=== PATIENT | female | born 1990 | race Two or more races ===

== ENCOUNTER 2017-07-19 11:02 | Inpatient (IN) | payer OTHER ==
[2017-07-19] MEDS ORDERED: Carboprost Tromethamine 250 MCG/1 ML Amp IM PRN (13:23)
[2017-07-19] MEDS ORDERED: Methylergonovine 0.2 MG/1 ML Amp IM PRN (13:23)
[2017-07-19] MEDS ORDERED: Butorphanol 1 MG/ML SDV IVPUSH PRN (13:23)
[2017-07-19] MEDS ORDERED: Water For Irrigation,Sterile 1,000 ML Container IRR PRN (13:23)
[2017-07-19] MEDS ORDERED: Lidocaine 1% 50 ML MDV INJECT PRN (13:23)
[2017-07-19] MEDS ORDERED: Misoprostol 200 MCG Tab PO PRN (13:23)
[2017-07-19] MEDS ORDERED: Sodium Chloride 0.9% 10 ML Syringe FLUSH PRN (13:23)
[2017-07-19] MEDS ORDERED: Sodium Chloride 0.9% 2.5 ML Syringe FLUSH PRN (13:23)
[2017-07-19] MEDS ORDERED: Nalbuphine 10 MG/1 ML Vial IVPUSH PRN (13:23)
[2017-07-19] MEDS ORDERED: Oxytocin/0.9 % Sodium Chloride 30 UNIT/500 ML BAG IV SCH (13:30)
[2017-07-19] MEDS: Lactated Ringers 1,000 ML IV SCH ×4 (13:38→18:57)
[2017-07-19] MEDS: SODIUM CHLORIDE 0.9% IV SCH ×2 (15:18→23:13)
[2017-07-19] MEDS: ACYCLOVIR IV SCH ×2 (15:18→23:13)
[2017-07-19] MEDS ORDERED: fentaNYL 100 MCG/2 ML SDV ONE (18:58)
[2017-07-19] MEDS ORDERED: Ropivacaine HCl/PF 100 ML ONE (19:00)
--- NOTE | 2017-07-19 19:39 | PCM.PREANE ---
Preanesthetic Assessment - Procedure Proposed Procedure: labor epidural placement and dosing - Anesthesia/Transfusion/Family Hx Anesthesia History: Prior Anesthesia Without Reaction Family History of Anesthesia Reaction: No Transfusion History: No Prior Transfusion(s) Intubation History: Unknown - Review of Systems General: Other (labor pains) Pulmonary: No Symptoms Cardiovascular: No Symptoms Gastrointestinal: No Symptoms Neurological: No Symptoms Other: Reports: Anxiety - Physical Assessment NPO Status Date: 07/19/17 NPO Status Time: 12:00 Height: 5 ft 4 in Weight: 170 lb ASA Class: 2E Mental Status: Alert & Oriented x3 Airway Class: Mallampati = 1 Dentition: Reports: Normal Dentition Thyro-Mental Finger Breadths: 3 Mouth Opening Finger Breadths: 3 ROM/Head Extension: Full Lungs: Clear to Auscultation, Normal Respiratory Effort Cardiovascular: Regular Rate, Regular Rhythm, No Murmurs - Lab Values: Laboratory Last Values WBC 11.80 K/uL (4.0-11.0) H 07/19/17 13:36 RBC 3.87 M/uL (4.30-5.90) L 07/19/17 13:36 Hgb 12.6 g/dL (12.0-16.0) 07/19/17 13:36 Hct 37.0 % (36.0-46.0) 07/19/17 13:36 MCV 95.6 fL (80.0-98.0) 07/19/17 13:36 MCH 32.6 pg (27.0-32.0) H 07/19/17 13:36 MCHC 34.1 g/dL (31.0-37.0) 07/19/17 13:36 RDW Std Deviation 45.1 fl (28.0-62.0) 07/19/17 13:36 RDW Coeff of Beatrice 13 % (11.0-15.0) 07/19/17 13:36 Plt Count 146 K/uL (150-400) L 07/19/17 13:36 MPV 11.60 fL (7.40-12.00) 07/19/17 13:36 Nucleated RBC % 0.0 /100WBC 07/19/17 13:36 Nucleated RBCs # 0 K/uL 07/19/17 13:36 Blood Type O POSITIVE 07/19/17 13:36 Antibody Screen NEGATIVE 07/19/17 13:36 - Allergies Allergies/Adverse Reactions: Allergies Allergy/AdvReac Type Severity Reaction Status Date / Time No Known Allergies Allergy Verified 03/10/16 09:37 - Blood Blood Available: No - Anesthesia Plan Pre-Op Medication Ordered: Other (stadol greater than hour ago) - Acknowledgements Anesthesia Type Planned: Epidural Pt an Appropriate Candidate for the Planned Anesthesia: Yes Alternatives and Risks of Anesthesia Discussed w Pt/Guardian: Yes Pt/Guardian Understands and Agrees with Anesthesia Plan: Yes Additional Comments: present PreAnesthesia Questionnaire - Past Health History Medical/Surgical History: Denies Medical/Surgical History - Infectious Disease History Infectious Disease History: Reports: Chicken Pox, Measles, Mumps - SUBSTANCE USE Smoking Status *Q: Never Smoker Tobacco Use Within Last Twelve Months: No Second Hand Smoke Exposure: No Recreational Drug Use History: No - CURRENT (IN HOUSE) MEDS Current Meds: Current Medications Butorphanol Tartrate (Stadol) 1 mg IVPUSH Q1H PRN PRN Reason: Pain Last Admin: 07/19/17 18:10 Dose: 1 mg Carboprost Tromethamine (Hemabate Ds) 250 mcg IM ASDIRECTED PRN PRN Reason: Post Hemorrhage Lactated Ringer's (Ringers, Lactated) 1,000 mls @ 150 mls/hr IV ASDIRECTED [facility] Last Admin: 07/19/17 18:57 Dose: 150 mls/hr Oxytocin/Sodium Chloride (Oxytocin 30 Unit/500 Ml-Ns) 30 unit in 500 mls @ 999 mls/hr IV TITRATE [facility] Acyclovir 770 mg/ Sodium (Chloride) 115.4 mls @ 115.4 mls/hr IV Q8H [facility] Last Admin: 07/19/17 15:18 Dose: 115.4 mls/hr Lidocaine HCl (Xylocaine 1%) 50 ml INJECT .ONCE PRN PRN Reason: Laceration repair Methylergonovine Maleate (Methergine) 0.2 mg IM ASDIRECTED PRN PRN Reason: Post Hemorrhage Misoprostol (Cytotec) 200 mcg PO .ONCE PRN PRN Reason: Post Hemorrhage Nalbuphine HCl (Nubain) 10 mg IVPUSH Q1H PRN PRN Reason: Pain (severe 7-10) Sodium Chloride (Saline Flush) 10 ml FLUSH ASDIRECTED PRN PRN Reason: Keep Vein Open Sodium Chloride (Saline Flush) 2.5 ml FLUSH ASDIRECTED PRN PRN Reason: Keep Vein Open Sterile Water (Sterile Water For Irrigation) 1,000 ml IRR ASDIRECTED PRN PRN Reason: delivery Discontinued Medications Fentanyl (Sublimaze) Confirm Administered Dose 100 mcg .ROUTE .STK-MED ONE Stop: 07/19/17 18:59 Ropivacaine (Naropin 0.2%) Confirm Administered Dose 100 mls @ as directed .ROUTE .STK-MED ONE Stop: 07/19/17 19:01
[2017-07-20] MEDS ORDERED: oxyCODONE 5 MG Tab PO PRN (00:42)
[2017-07-20] MEDS ORDERED: Benzocaine/Menthol 20%-0.5% Spray 78 GM Cannister TOP PRN (00:42)
[2017-07-20] MEDS ORDERED: Lanolin 100% Cream 7 GM Tube TOP PRN (00:42)
[2017-07-20] MEDS ORDERED: Bisacodyl 10 MG Supp RECTAL PRN (00:42)
[2017-07-20] MEDS ORDERED: Acetaminophen 500 MG Tab PO PRN (00:42)
[2017-07-20] MEDS ORDERED: Ibuprofen 400 MG Tab PO PRN (00:42)
[2017-07-20] MEDS ORDERED: Witch Hazel Medicated Pads 40/Jar TOP PRN (00:42)
[2017-07-20] MEDS ORDERED: Methylergonovine 0.2 MG/1 ML Amp IM PRN (00:42)
[2017-07-20] MEDS: Ibuprofen 800 MG Tab PO PRN ×3 (02:19→16:21)
--- NOTE | 2017-07-20 03:01 | OR ---
SURGEON: Arti Dee M.D. DATE OF PROCEDURE: 07/20/2017 PREOPERATIVE DIAGNOSIS: Thirty nine week intrauterine , active spontaneous labor. POSTOPERATIVE DIAGNOSIS: Thirty nine week intrauterine , active spontaneous labor. PROCEDURE: Term spontaneous vaginal delivery, repair of bilateral vaginal laceration. ANESTHESIA: Epidural. ESTIMATED BLOOD LOSS: Less than 300 mL. FINDINGS: Liveborn male, scores were 8 and 9, weight is pending at the time of dictation. ANESTHESIA: Epidural. COMPLICATIONS: None known. DISPOSITION: Mother and baby are in LDRP, in good condition. BRIEF HISTORY: This is a 26-year-old female. She is . She presents in active spontaneous labor, 4 to 5 cm dilated. She had artificial rupture of membranes performed, clear fluid noted. She received an epidural for pain control. She had category 1 heart tones throughout labor. She progressed to complete. DESCRIPTION OF PROCEDURE: With the patient in dorsal lithotomy position, the patient pushed over 20 minutes time period to a 5+ station, at which time the head was delivered spontaneously and atraumatically over the perineum with support with subsequent delivery of the 's shoulders and body without any difficulty. The infant was bulb suctioned by nose and mouth, the cord was clamped x2 and cut, and the infant was handed to the mother in the presence of the nurse attending delivery. The infant was a liveborn male, scores 8 and 9. Weight is pending at the time of dictation. Cord blood was collected for cord ABGs as well as routine cord blood sampling. Pitocin was initiated after delivery of the to assist with delivery of the placenta, which was delivered spontaneously, Schultze intact with 3 vessels. Upon inspection of the pelvis and perineum, there were no vaginal sidewall, cervical, rectal, or perineal lacerations. At the upper lateral vagina, there was a small laceration on each side requiring a single [id number] suture for hemostasis. Final sponge, needle, and instrument counts were correct. There were no known complications. Mother and are in LDRP, in good condition. GOKUL / JULIETTE /[id number]
[2017-07-20] MEDS: Acetaminophen 500 MG Tab PO PRN ×3 (06:10→19:58)
--- NOTE | 2017-07-20 06:51 | PCM48HPAN ---
Post Anesthesia Note - EVALUATION WITHIN 48HRS OF ANESTHETIC Vital Signs in Normal Range: Yes Patient Participated in Evaluation: Yes Respiratory Function Stable: Yes Airway Patent: Yes Cardiovascular Function Stable: Yes Hydration Status Stable: Yes Pain Control Satisfactory: Yes Nausea and Vomiting Control Satisfactory: Yes Mental Status Recovered: Yes
--- NOTE | 2017-07-20 08:42 | PCM.PNPP ---
- General Info Date of Service: 07/20/17 Functional Status: Reports: Pain Controlled, Tolerating Diet, Ambulating, Urinating - Review of Systems General: Denies: Fever, Weakness, Fatigue Pulmonary: Denies: Shortness of Breath, Pleuritic Chest Pain, Cough Cardiovascular: Denies: Chest Pain, Palpitations, Dyspnea on Exertion Gastrointestinal: Denies: Abdominal Pain Genitourinary: Denies: Dysuria - General Info Date of Service: 07/20/17 - Patient Data Vital Signs - Most Recent: Last Vital Signs Temp 37.2 C 07/20/17 06:00 Pulse 85 07/20/17 06:00 Resp 20 07/20/17 06:00 BP 112/53 L 07/20/17 06:00 Pulse Ox 97 07/20/17 06:00 Weight - Most Recent: 77.111 kg Lab Results - Last 24 Hours: Laboratory Results - last 24 hr 07/19/17 07/19/17 Range/Units 13:36 13:36 WBC 11.80 H (4.0-11.0) K/uL RBC 3.87 L (4.30-5.90) M/uL Hgb 12.6 (12.0-16.0) g/dL Hct 37.0 (36.0-46.0) % MCV 95.6 (80.0-98.0) fL MCH 32.6 H (27.0-32.0) pg MCHC 34.1 (31.0-37.0) g/dL RDW Std Deviation 45.1 (28.0-62.0) fl RDW Coeff of Beatrice 13 (11.0-15.0) % Plt Count 146 L (150-400) K/uL MPV 11.60 (7.40-12.00) fL Nucleated RBC % 0.0 /100WBC Nucleated RBCs # 0 K/uL Blood Type O POSITIVE Antibody Screen NEGATIVE Med Orders - Current: Current Medications Acetaminophen (Tylenol Extra Strength) 500 mg PO Q4H PRN PRN Reason: Pain Acetaminophen (Tylenol Extra Strength) 1,000 mg PO Q4H PRN PRN Reason: Pain Last Admin: 07/20/17 06:10 Dose: 1,000 mg Benzocaine/Menthol (Dermoplast Pain Relief 20%-0.5% [place]) 78 gm TOP ASDIRECTED PRN PRN Reason: Perineal Comfort Measure Bisacodyl (Dulcolax) 10 mg RECTAL .ONCE PRN PRN Reason: Constipation Docusate Sodium (Colace) 100 mg PO BID PRN PRN Reason: Constipation Emollient Ointment (Lansinoh Hpa) 0 gm TOP ASDIRECTED PRN PRN Reason: Sore Nipples Ibuprofen (Motrin) 400 mg PO Q4H PRN PRN Reason: Pain Ibuprofen (Motrin) 800 mg PO Q6H PRN PRN Reason: Pain Last Admin: 07/20/17 02:19 Dose: 800 mg Methylergonovine Maleate (Methergine) 0.2 mg IM .ONCE PRN PRN Reason: Excessive Vaginal Bleeding Oxycodone HCl (Oxycodone) 5 mg PO Q2H PRN PRN Reason: Pain Witch Lena (Tucks) 1 pad TOP ASDIRECTED PRN PRN Reason: comfort care Discontinued Medications Butorphanol Tartrate (Stadol) 1 mg IVPUSH Q1H PRN PRN Reason: Pain Last Admin: 07/19/17 18:10 Dose: 1 mg Carboprost Tromethamine (Hemabate Ds) 250 mcg IM ASDIRECTED PRN PRN Reason: Post Hemorrhage Fentanyl (Sublimaze) Confirm Administered Dose 100 mcg .ROUTE .STK-MED ONE Stop: 07/19/17 18:59 Lactated Ringer's (Ringers, Lactated) 1,000 mls @ 150 mls/hr IV ASDIRECTED [facility] Last Admin: 07/19/17 18:57 Dose: 150 mls/hr Oxytocin/Sodium Chloride (Oxytocin 30 Unit/500 Ml-Ns) 30 unit in 500 mls @ 999 mls/hr IV TITRATE [facility] Last Admin: 07/20/17 00:13 Dose: 999 mls/hr Acyclovir 770 mg/ Sodium (Chloride) 115.4 mls @ 115.4 mls/hr IV Q8H [facility] Last Admin: 07/19/17 23:13 Dose: 115.4 mls/hr Ropivacaine (Naropin 0.2%) Confirm Administered Dose 100 mls @ as directed .ROUTE .STK-MED ONE Stop: 07/19/17 19:01 Lidocaine HCl (Xylocaine 1%) 50 ml INJECT .ONCE PRN PRN Reason: Laceration repair Methylergonovine Maleate (Methergine) 0.2 mg IM ASDIRECTED PRN PRN Reason: Post Hemorrhage Misoprostol (Cytotec) 200 mcg PO .ONCE PRN PRN Reason: Post Hemorrhage Nalbuphine HCl (Nubain) 10 mg IVPUSH Q1H PRN PRN Reason: Pain (severe 7-10) Sodium Chloride (Saline Flush) 10 ml FLUSH ASDIRECTED PRN PRN Reason: Keep Vein Open Sodium Chloride (Saline Flush) 2.5 ml FLUSH ASDIRECTED PRN PRN Reason: Keep Vein Open Sterile Water (Sterile Water For Irrigation) 1,000 ml IRR ASDIRECTED PRN PRN Reason: delivery Last Admin: 07/20/17 01:03 Dose: 1,000 ml - Infant Interaction Disposition, : at Bedside Infant Interaction: Holding Infant Feeding: Breastfed Infant; Nursed Well Support Person: - Recovery Exam Fundal Tone: Firm Fundal Level: At Umbilicus Fundal Placement: Midline Lochia Color: Rubra/Red Perineum Description: Intact, Minimal Bruising/Swelling Episiotomy/Laceration: Approximated - Exam General: Alert, Oriented Neck: Supple Lungs: Clear to Auscultation, Normal Respiratory Effort Cardiovascular: Regular Rate, Regular Rhythm GI/Abdominal Exam: Normal Bowel Sounds, Soft, Non-Tender, No Organomegaly, No Distention, No Mass, Pelvis Stable Extremities: Normal Inspection, Normal Range of Motion, Non-Tender, Normal Capillary Refill, Pedal Edema (trace) - Problem List & Annotations (1) Vaginal delivery SNOMED Code(s): 206763949 Code(s): O80 - ENCOUNTER FOR FULL-TERM UNCOMPLICATED DELIVERY Status: Acute Current Visit: Yes - Problem List Review Problem List Initiated/Reviewed/Updated: Yes - Assessment Assessment:: PPD#0 from . Minimal pain and lochia. Work on breast feeding today. Aim for discharge home tomorrow. - Plan Plan:: Continue routine post- cares.
[2017-07-20] MEDS: Docusate Sodium 100 MG Cap PO PRN (08:45)
[2017-07-21] MEDS: Ibuprofen 800 MG Tab PO PRN ×2 (00:20→08:09)
[2017-07-21] MEDS: Docusate Sodium 100 MG Cap PO PRN (08:15)
--- NOTE | 2017-07-21 09:01 | PCM.PNPP ---
- General Info Functional Status: Reports: Pain Controlled, Tolerating Diet, Ambulating, Urinating - Review of Systems General: Reports: No Symptoms HEENT: Reports: No Symptoms Pulmonary: Reports: No Symptoms Cardiovascular: Reports: No Symptoms Gastrointestinal: Reports: No Symptoms Genitourinary: Reports: No Symptoms Musculoskeletal: Reports: No Symptoms Skin: Reports: No Symptoms Neurological: Reports: No Symptoms Psychiatric: Reports: No Symptoms - Patient Data Vital Signs - Most Recent: Last Vital Signs Temp 36.7 C 07/21/17 04:00 Pulse 103 H 07/21/17 04:00 Resp 16 07/21/17 04:00 BP 102/57 L 07/21/17 04:00 Pulse Ox 97 07/21/17 04:00 Weight - Most Recent: 77.111 kg I&O - Last 24 Hours: Intake & Output 07/20/17 07/21/17 07/21/17 22:59 06:59 14:59 Intake Total 250 850 Balance 250 850 Lab Results - Last 24 Hours: Laboratory Results - last 24 hr 07/21/17 Range/Units 04:57 Hgb 11.1 L (12.0-16.0) g/dL Hct 33.2 L (36.0-46.0) % Med Orders - Current: Current Medications Acetaminophen (Tylenol Extra Strength) 500 mg PO Q4H PRN PRN Reason: Pain Acetaminophen (Tylenol Extra Strength) 1,000 mg PO Q4H PRN PRN Reason: Pain Last Admin: 07/20/17 19:58 Dose: 1,000 mg Benzocaine/Menthol (Dermoplast Pain Relief 20%-0.5% [place]) 78 gm TOP ASDIRECTED PRN PRN Reason: Perineal Comfort Measure Bisacodyl (Dulcolax) 10 mg RECTAL .ONCE PRN PRN Reason: Constipation Docusate Sodium (Colace) 100 mg PO BID PRN PRN Reason: Constipation Last Admin: 07/21/17 08:15 Dose: 100 mg Emollient Ointment (Lansinoh Hpa) 0 gm TOP ASDIRECTED PRN PRN Reason: Sore Nipples Ibuprofen (Motrin) 400 mg PO Q4H PRN PRN Reason: Pain Ibuprofen (Motrin) 800 mg PO Q6H PRN PRN Reason: Pain Last Admin: 07/21/17 08:09 Dose: 800 mg Methylergonovine Maleate (Methergine) 0.2 mg IM .ONCE PRN PRN Reason: Excessive Vaginal Bleeding Oxycodone HCl (Oxycodone) 5 mg PO Q2H PRN PRN Reason: Pain Last Admin: 07/20/17 14:07 Dose: 5 mg Witch Lena (Tucks) 1 pad TOP ASDIRECTED PRN PRN Reason: comfort care Discontinued Medications Butorphanol Tartrate (Stadol) 1 mg IVPUSH Q1H PRN PRN Reason: Pain Last Admin: 07/19/17 18:10 Dose: 1 mg Carboprost Tromethamine (Hemabate Ds) 250 mcg IM ASDIRECTED PRN PRN Reason: Post Hemorrhage Fentanyl (Sublimaze) Confirm Administered Dose 100 mcg .ROUTE .[employer] ONE Stop: 07/19/17 18:59 Last Admin: 07/20/17 09:54 Dose: Not Given Lactated Ringer's (Ringers, Lactated) 1,000 mls @ 150 mls/hr IV ASDIRECTED [facility] Last Admin: 07/19/17 18:57 Dose: 150 mls/hr Oxytocin/Sodium Chloride (Oxytocin 30 Unit/500 Ml-Ns) 30 unit in 500 mls @ 999 mls/hr IV TITRATE [facility] Last Admin: 07/20/17 00:13 Dose: 999 mls/hr Acyclovir 770 mg/ Sodium (Chloride) 115.4 mls @ 115.4 mls/hr IV Q8H [facility] Last Admin: 07/19/17 23:13 Dose: 115.4 mls/hr Ropivacaine (Naropin 0.2%) Confirm Administered Dose 100 mls @ as directed .ROUTE .[employer] ONE Stop: 07/19/17 19:01 Last Admin: 07/20/17 09:54 Dose: Not Given Lidocaine HCl (Xylocaine 1%) 50 ml INJECT .ONCE PRN PRN Reason: Laceration repair Methylergonovine Maleate (Methergine) 0.2 mg IM ASDIRECTED PRN PRN Reason: Post Hemorrhage Misoprostol (Cytotec) 200 mcg PO .ONCE PRN PRN Reason: Post Hemorrhage Nalbuphine HCl (Nubain) 10 mg IVPUSH Q1H PRN PRN Reason: Pain (severe 7-10) Sodium Chloride (Saline Flush) 10 ml FLUSH ASDIRECTED PRN PRN Reason: Keep Vein Open Sodium Chloride (Saline Flush) 2.5 ml FLUSH ASDIRECTED PRN PRN Reason: Keep Vein Open Sterile Water (Sterile Water For Irrigation) 1,000 ml IRR ASDIRECTED PRN PRN Reason: delivery Last Admin: 07/20/17 01:03 Dose: 1,000 ml - Interaction Disposition, : at Bedside Interaction: Holding Infant Feeding: Breastfed ; Nursed Well Support Person: - Recovery Exam Fundal Tone: Firm Fundal Level: 2 Fingerbreadths Below Umbilicus Fundal Placement: Midline Lochia Amount: Small Lochia Color: [place] Perineum Description: Intact, Minimal Bruising/Swelling Episiotomy/Laceration: Approximated Bladder Status: Voiding Urinary Elimination: Voided - Exam General: Alert, Oriented Lungs: Clear to Auscultation, Normal Respiratory Effort Cardiovascular: Regular Rate, Regular Rhythm GI/Abdominal Exam: Normal Bowel Sounds, Soft, Non-Tender, No Organomegaly Neurological: No New Focal Deficit Psy/Mental Status: Alert, Normal Affect, Normal Mood - Problem List & Annotations (1) Vaginal delivery SNOMED Code(s): 128445414 Code(s): O80 - ENCOUNTER FOR FULL-TERM UNCOMPLICATED DELIVERY Status: Acute Current Visit: Yes - Problem List Review Problem List Initiated/Reviewed/Updated: Yes - My Orders Last 24 Hours: My Active Orders 07/21/17 08:32 Ready for Discharge [RC] PER UNIT ROUTINE - Assessment Assessment:: PPD#1 from . Minimal pain and lochia. well, had consultation yesterday. Would like to go home today. - Plan Plan:: Dismiss to home, discharge instructions reviewed.
[2017-07-21 12:31] VITALS: BP 115/72
== END 2017-07-21 14:03 | disposition home or self-care (01) | DRG 775 ==
LOC: MW.OBCHECK 11:02 → MW.OB 11:03 → MW.OBCHECK 13:16 → OBSVTOIN 07-20 00:42 → MW.OB 07-20 03:30 → MW.MS 07-20 14:33
PROVIDERS: ADMIT Obstetrics & Gynecology; ATTEND Obstetrics & Gynecology
PROC: 10E0XZZ Delivery of Products of Conception, External Approach (ICD-10-PCS; principal; 2017-07-20)
PROC: 0HQ9XZZ Repair Perineum Skin, External Approach (ICD-10-PCS; 2017-07-20)
PROC: 10907ZC Drainage of Amniotic Fluid, Therapeutic from Products of Conception, Via Natural or Artificial Opening (ICD-10-PCS; 2017-07-20)
DX: O70.0 First degree perineal laceration during delivery (principal); Z3A.39 39 weeks gestation of pregnancy; Z37.0 Single live birth
CPT/HCPCS: 01967; 36415; 51702; 59025; 59409; 85014; 85018; 85027; 86694; 86695; 86696; 86850; 86900; 86901; A9270-GY; J0133; J0595; J2590; J2795; J3010; J7030; J7120

== ENCOUNTER 2020-05-16 14:07 | Emergency (ER) | payer OTHER ==
[2020-05-16] MEDS ORDERED: Sodium Chloride 0.9% 1,000 ML IV ONE (14:20)
[2020-05-16] MEDS ORDERED: diphenhydrAMINE 50 MG/ML SDV IVPUSH ONE (14:21)
--- NOTE | 2020-05-16 14:25 | EDM.PDOC ---
ED HPI GENERAL MEDICAL PROBLEM - General Chief Complaint: General Stated Complaint: HEAT EXHAUSTION Time Seen by Provider: 05/16/20 14:15 - History of Present Illness INITIAL COMMENTS - FREE TEXT/NARRATIVE: History of present illness: Patient presents with EMS after becoming suddenly short of breath with a work she states she cannot catch her breath and she is numb and tingly all over states she is been very stressed lately. Any headache no chest pain no leg pain or leg swelling just shortness of breath and tingling all over she is tearful she has similar episode on Wednesday and was diagnosed with anxiety. Review of systems: As per history of present illness and below otherwise all systems reviewed and negative. Past medical history: As per history of present illness and as reviewed below otherwise noncontributory. Surgical history: As per history of present illness and as reviewed below otherwise noncontributory. Social history: No reported history of drug or alcohol abuse. Family history: As per history of present illness and as reviewed below otherwise noncontributory. Physical exam: HEENT: Atraumatic, normocephalic, pupils reactive, negative for conjunctival pallor or scleral icterus, mucous membranes moist, throat clear, neck supple, nontender, trachea midline. Lungs: Clear to auscultation, breath sounds equal bilaterally, chest nontender. Heart: S1S2, regular, negative for clicks, rubs, or JVD. Abdomen: Soft, nondistended, nontender. Negative for masses or hepatosplenomegaly. Negative for costovertebral tenderness. Pelvis: Stable nontender. Genitourinary: Deferred. Rectal: Deferred. Extremities: Atraumatic, negative for cords or calf pain. Neurovascular unremarkable. Neuro: Awake, alert, oriented. Cranial nerves II through XII unremarkable. Cerebellum unremarkable. Motor and sensory unremarkable throughout. Exam nonfocal. Psych: Anxious and tearful no homicidal or suicidal ideation Diagnostics: [] Therapeutics: [] Impression: Anxiety reaction with hyperventilation [] Plan: Normal saline bolus and 50 of Benadryl reassess the patient [] Definitive disposition and diagnosis as appropriate pending reevaluation and review of above. lower abdomen Pain Score (Numeric/FACES): 6 - Related Data Allergies Allergy/AdvReac Type Severity Reaction Status Date / Time No Known Allergies Allergy Verified 05/16/20 14:13 Home Meds: Home Meds Ibuprofen 400 mg PO DAILY PRN 05/16/20 [History] Past Medical History [employer] History: Reports: Endometriosis Psychiatric History: Reports: Anxiety Social & Family History - Family History Family Medical History: Noncontributory - Tobacco Use Smoking Status *Q: Never Smoker - Caffeine Use Caffeine Use: Reports: Coffee - Recreational Drug Use Recreational Drug Use: No ED ROS GENERAL - Review of Systems Review Of Systems: See Below ED EXAM, GENERAL - Physical Exam Exam: See Below Course - Vital Signs Text/Narrative:: Patient was reassessed at 3:20 PM she is feeling much better at this time her vital signs have normalized I recommend counseling for her anxiety and following up with primary care to be discharged home return to the ED for other problems. Last Recorded V/S: Last Vital Signs Temp 37.4 C 05/16/20 14:09 Pulse 112 H 05/16/20 14:09 Resp 20 05/16/20 14:09 BP 98/76 05/16/20 14:09 Pulse Ox 100 05/16/20 14:09 - Orders/Labs/Meds Labs: Laboratory Tests 05/16/20 Range/Units 14:48 Urine HCG, Qual NEGATIVE (NEGATIVE) Meds: Medications Discontinued Medications Generic Name Dose Route Start Last Admin Trade Name Freq PRN Reason Stop Dose Admin Diphenhydramine HCl 50 mg 05/16/20 14:21 05/16/20 14:26 Benadryl IVPUSH 05/16/20 14:22 50 mg ONETIME ONE Administration Sodium Chloride 1,000 mls @ 9,999 mls/hr 05/16/20 14:20 05/16/20 14:26 Normal Saline IV 05/16/20 14:25 9,999 mls/hr .Bolus ONE Administration Departure - Departure Time of Disposition: 15:21 Disposition: Home, Self-Care 01 Condition: Good Clinical Impression: Anxiety reaction - Discharge Information *PRESCRIPTION DRUG MONITORING PROGRAM REVIEWED*: Not Applicable *COPY OF PRESCRIPTION DRUG MONITORING REPORT IN PATIENT DELORES: Not Applicable Instructions: Generalized Anxiety Disorder, Adult Referrals: PCP,None [Primary Care Provider] - Forms: ED Department Discharge Additional Instructions: The following information is given to patients seen in the emergency department who are being discharged to home. This information is to outline your options for follow-up care. We provide all patients seen in our emergency department with a follow-up referral. The need for follow-up, as well as the timing and circumstances, are variable depending upon the specifics of your emergency department visit. If you don't have a primary care physician on staff, we will provide you with a referral. We always advise you to contact your personal physician following an emergency department visit to inform them of the circumstance of the visit and for follow-up with them and/or the need for any referrals to a consulting specialist. The emergency department will also refer you to a specialist when appropriate. This referral assures that you have the opportunity for follow-up care with a specialist. All of these measure are taken in an effort to provide you with optimal care, which includes your follow-up. Under all circumstances we always encourage you to contact your private physician who remains a resource for coordinating your care. When calling for follow-up care, please make the office aware that this follow-up is from your recent emergency room visit. If for any reason you are refused follow-up, please contact the [facility] Emergency Department at and asked to speak to the emergency department charge nurse. [facility] [address] [place] [id number] [address] Sepsis Event Note (ED) - Evaluation Sepsis Screening Result: No Definite Risk - Focused Exam Vital Signs: Vital Signs Temp Pulse Resp BP Pulse Ox 05/16/20 14:09 37.4 C 112 H 20 98/76 100
[2020-05-16 15:30] VITALS: BP 105/68; PULSE 88
== END 2020-05-16 15:30 | disposition home or self-care (01) ==
LOC: MW.ED 14:07 → MERGE 14:07 → MW.ED 15:30
DX: F41.1 Generalized anxiety disorder (principal)
CPT/HCPCS: 81025; 96374; 99285; J1200; J7030